=== PATIENT | female | born 1965 | race Caucasian/White ===

== ENCOUNTER → 2020-07-16 | Outpatient (CLI) | payer OTHER, SELFPAY | END | disposition home or self-care (01) | LOC: LABSPEC 16:17 | PROVIDERS: PCP Family Medicine; Referring Provider Family Medicine; Visit Provider Family Medicine | DX: M54.9 Dorsalgia, unspecified (principal) | CPT/HCPCS: 87086 ==

== ENCOUNTER → 2021-07-30 | Outpatient (CLI) | payer OTHER, SELFPAY | END | disposition home or self-care (01) | LOC: LABSPEC 09:44 | PROVIDERS: PCP Family Medicine; Referring Provider Physician Assistant; Visit Provider Physician Assistant | DX: Z11.52 Encounter for screening for COVID-19 (principal) | CPT/HCPCS: 87635; U0005; U0003 ==

== ENCOUNTER → 2023-01-11 | Outpatient (CLI) | payer OTHER, SELFPAY ==
--- NOTE | 2023-01-11 11:29 | RAD_ITS ---
STUDY: X-RAY - RIGHT SHOULDER REASON FOR EXAM: Female, 57 years old. PAIN TECHNIQUE: 4 view(s) of the shoulder. COMPARISON: None. FINDINGS: Normal glenohumeral articulation. Normal acromioclavicular joint. Normal acromion. Normal humeral head and visualized proximal humerus. The soft tissue structures are unremarkable. Normal visualized pulmonary apex. RAD/Shoulder min 2 Views IMPRESSION: Normal x-ray examination of the shoulder. Electronically Signed: Eric Mandel MD at 11:44 EDT ,
== END | disposition home or self-care (01) ==
PROVIDERS: PCP Family Medicine; Referring Provider Family Medicine; Visit Provider Family Medicine
DX: M25.511 Pain in right shoulder (principal)
CPT/HCPCS: 73030

== ENCOUNTER 2023-03-11 13:00 | Outpatient (RCR) | payer OTHER, SELFPAY ==
--- NOTE | 2023-01-14 14:14 | HP.PTEVAL ---
Patient's Visit Information KRISHNA TUCKER is a 57 year old F referred to Physical Therapy by Dr. Carmelita Pino MD with a diagnosis of Right Shoulder Pain. Date of Evaluation: 01/14/23 Physical Therapist: Audrey Orozco DPT - Visit Plan Frequency: 2x /Week Duration: 6 Weeks Plan: ROM of the right UE- PROM, AAROM, AROM then progress to scapular strength/stabilization. HEP Given IE: Supine Cane Flexion, Standing Cane Abd, Standing Cane Extn, Standing Flexion Walk Away, Wall Walks Flexion - Subjective Patient reports that she has decreased right shoulder ROM since October- last year she yanked on the mower and it didn't give but nothing happened. She woke up in October and felt inflamed. She struggles the most with being the back and up over head. She has had an x-rays but no MRI. She is careful and doesn't do things that she thinks will bother int. Pain is located in the deltoid and radiates to the elbow. No pain on the inside of the joint. No issue with finger dexterity or deputy assessor strength- no THOMAS, blurred vision or dizziness. Eases: Ibuprofen and not using it in ranges. Best: 0/10 Worst: feels like it wants to snap. Describes the pain as dull and achy like its going to pop. Early on she reached inside the washer and she heard a pop. She is not diabetic but her father is- no history of frozen shoulder in her family. Went to the MD and she said go to PT- she did not give her any medication. Sleep: not disturbed- on her left side only. 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 Left hand dominate- but she also uses her left hand a lot. PMHx: none Meds: topical ointment for rosacia - Objective Posture: guarding of the right UE. Gait: decreased arm swing of the right UE. Palpation: not tender to touch throughout the shoulder. ROM: AROM: Cervical: WNL Elbow/Wrist/Hand: WNL Shoulder: Flexion: 110 degrees: Abd: 70 degrees. ER: 30 degrees. IR: to belt line. PROM: Shoulder: Flexion: 150 degrees, Abd: 100 degrees, IR: to belly, ER: 50 degrees. Strength: Scap: fair minus. Shoulder: 4/5 isometric at neutral. Elbow: 4+/5 Decontaminator: good - Balance/Special Test Scores Quick DASH Score: 80.0000 - Goals Goal 1:: Patient will be I with HEP and progression Goal Time Frame: 4-6 Weeks Goal 2:: Patient will demo full AROM of the right shoulder without pain Goal Time Frame: 4-6 Weeks Goal 3:: Patient will place her hand behind her head without pain Goal Time Frame: 4-6 Weeks Goal 4:: Patient will hook her bra behind her back without pain Goal Time Frame: 4-6 Weeks Goal 5:: Patient will maintain proper posture to demo increased scap s/s Goal Time Frame: 4-6 Weeks Goal 6:: Patient will report 80% improvement Goal Time Frame: 4-6 Weeks - Rehabilitation Potential Physical Therapy Diagnosis: Patient presents with hypomobility- she has decreased right shoulder ROM, scapular strength/stabilization, flex and muscular endurance leading to increased pain with ADL's. Rehabilitation Potential: Good - Anticipated Interventions Patient/Client Instruction: Educate patient on: Benefits of Fitness Program Therapeutic Exercise to Include: Strength training, Endurance training, Coordination, Agility training, Body mechanics, Postural training, Flexibilty training, Neuromotor development, Passive ROM, Active ROM, Dynamic Lumbar Stabilization, Scapular Strength/Stabilization Manual Therapy Techniques to Include: Mobilization, Passive ROM, Soft tissue mobilization TENS: Yes Cryotherapy (ice pack, ice massage): Yes Thermo therapy (hot pack): Yes Thank you for the opportunity to evaluate your patient. For Medicare and Medicare HMO plans, please review the plan of care and approve it. It will need to be FAXED BACK to us at [phone] for Medicare purposes. For Medicare only, by signing this I certify the plan of care. Please let me know if there are questions or concerns regarding this plan of care. Physician Signature: Date:
--- NOTE | 2023-02-25 13:58 | HP.PTREVAL_ITS ---
Dr. Carmelita Pino MD, It has been my pleasure to treat KRISHNA TUCKER over the last 13 visits for Right Shoulder Pain. Please see the progress note below for an update on the physical therapy plan of care! Subjective: Getting better. I can reach alot more than at first. Pain not an issue unless stretching. Overall motion is 75%. Behind back is still biggest problem with ADLs to fasten bra and tuck in shirt. Objective/Function: 145 abd and 133 flexion. 35 er, L5 IR pain. All improved to close to functional but not full. Pin is not an issue. needing cues to get to end range stretches today. Goals still appropriate for next 2 weeks with fair prognosis for continued improvement. Plan Plan: f/u 2-3 weeks to ensure ROm improving and d/c if doing well or reup POC if not improving. Balance/Gait/Functional tests - Balance/Special Test Scores Quick DASH Score: 18.1800 Goals Goal 1:: Patient will be I with HEP and progression Goal Time Frame: 4-6 Weeks Goal Progress: Goal Met Goal 2:: Patient will demo full AROM of the right shoulder without pain Goal Time Frame: 4-6 Weeks Goal Progress: Progressing Goal 3:: Patient will place her hand behind her head without pain Goal Time Frame: 4-6 Weeks Goal Progress: Progressing Goal 4:: Patient will hook her bra behind her back without pain Goal Time Frame: 4-6 Weeks Goal Progress: Not Progressing Goal 5:: Patient will maintain proper posture to demo increased scap s/s Goal Time Frame: 4-6 Weeks Goal Progress: Goal Met Goal 6:: Patient will report 80% improvement Goal Time Frame: 4-6 Weeks Goal Progress: 75% Anticipated Interventions Patient/Client Instruction: Educate patient on: Benefits of Fitness Program Therapeutic Exercise to Include: Strength training, Endurance training, Coordination, Agility training, Body mechanics, Postural training, Flexibilty training, Neuromotor development, Passive ROM, Active ROM, Dynamic Lumbar Stabilization, Scapular Strength/Stabilization Manual Therapy Techniques to Include: Mobilization, Passive ROM, Soft tissue mobilization TENS: Yes Cryotherapy (ice pack, ice massage): Yes Thermo therapy (hot pack): Yes Please do not hesitate to contact me at [phone] by phone or Fax: if you have questions or concerns regarding this new plan of care! Sincerely, Joce Childs, DPT, OCS, CSCS
--- NOTE | 2023-03-11 13:13 | HP.PTDCSUM ---
It has been my pleasure to treat KRISHNA TUCKER referred by Dr. Carmelita Pino MD, with the diagnosis of Right Shoulder Pain for a total of 14 visit(s). Discharge Date: 03/11/23 Please see the following information for a summary of their discharge status. Subjective: No problems, activity is close to normal. Only pain with stretches. Can fasten bra with stretching it. % Improvement: 80 Objective/Function: 150 flexion and abduction. 45 er. IR. Much better ROM and funcitonally doing what whe needs without pain. strength is improving at 4/5 flexion, abd, er, ir without pain. Goal 1:: Patient will be I with HEP and progression Goal Progress: Goal Met Goal 2:: Patient will demo full AROM of the right shoulder without pain Goal Progress: Progressing Goal 3:: Patient will place her hand behind her head without pain Goal Progress: Goal Met Goal 4:: Patient will hook her bra behind her back without pain Goal Progress: Goal Met Goal 5:: Patient will maintain proper posture to demo increased scap s/s Goal Progress: Goal Met Goal 6:: Patient will report 80% improvement Goal Progress: 80 Plan: d/c to HEP If there are questions or concerns regarding this patient's physical therapy, please feel free to call me at [phone]. Thank you for the referral of this patient. Sincerely, Joce Childs, DPT, OCS, CSCS Balance/Gait/Functional tests - Balance/Special Test Scores Quick DASH Score: 2.2725
== END 2023-03-11 14:14 | disposition home or self-care (01) ==
LOC: PT 13:00
PROVIDERS: PCP Family Medicine; Referring Provider Family Medicine; Visit Provider Family Medicine
DX: S46.911D Strain of unspecified muscle, fascia and tendon at shoulder and upper arm level, right arm, subsequent encounter (principal)
CPT/HCPCS: 97110; 97140; 97162; 97164; 97530

== ENCOUNTER 2024-10-06 08:57 | Emergency (ER) | payer OTHER, SELFPAY ==
[2024-10-06] VITALS (7 sets, daily range): BP systolic 120–195; BP diastolic 61–164; PULSE 69–99; RESP 8–20; TEMP 36.6; O2SAT 92–99
--- NOTE | 2024-10-06 09:29 | EDS_ITS ---
HPI History of Present Illness Chief Complaint: Upper Extremity Injury Informant: patient Narrative Narrative: Healthy 59-year-old female was walking on snowy sidewalk and hit her back device, slipped and broke her fall with her right outstretched hand, injuring a nd suspecting she broke her wrist. She denies any other pain or injury. 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 No numbness or tingling. PFSH PFSH Medical History no medical history no medical history Home Medications ?Medication ?Instructions ?Recorded ?Last Taken ?Type hydrocodone-acetaminophen 5-325mg 1 tab PO Q6H PRN PRN Pain 3 days 10/06/24 Unknown Rx 5mg-325mg #10 TABLETS Allergy/AdvReac Type Severity Reaction Status Date / Time No Known Allergies Allergy Verified 10/06/24 09:01 Family History no significant family his Surgical History no surgical history Social History Smoking Status: Never smoker ROS ROS ED Constitutional Constitutional ED: Denies chills or fever(s) Musculoskeletal Musculoskeletal: Reports extremity pain; Denies neck pain Integumentary Denies Abrasions, rash or wounds Neurologic Neurologic: Denies paresthesias or weakness EXAM Physical Exam Const Vital Signs: 10/06/24 08:58 Temperature 97.8 F Temperature Source Oral Pulse Rate 69 Respiratory Rate 20 H Blood Pressure 195/164 H Blood Pressure Mean 174 Pulse Ox 99 Oxygen Delivery Method Room Air Positive well nourished and well developed General Appearance ED: well developed and NAD HEENT normocephalic and atraumatic Eyes PERRL and EOMs intact bilaterally Neck full ROM and supple Resp normal respiratory effort Back/Spine normal ROM and normal to inspection Extremity Extremity Narrative: Deformity of the right wrist with swelling and tenderness. Able to wiggle fingers, no hand or finger tenderness. Nontender at the elbow bony prominences, limited range of motion due to pain at the wrist. All other extremities move fully without any apparent injury or limitation. Neuro oriented x3, no focal motor deficits and no sensory deficits noted Sensorium / Orientation: alert Psych mental status grossly normal and thought process normal Skin no wounds Rashes: no rashes MDM MDM MDM Narrative Medical decision making narrative: Three-view x-ray right wrist on my interpretation consistent with a Colles' fracture with displacement. Discussed management with the patient, she needs close reduction here, splinting, probably outpatient surgery. She ate a little something on the way here and took some ibuprofen, so moderate sedation is contraindicated but I think reasonable to give her anxiolysis with midazolam, as she is thinking that she wants some sedation for hematoma block and closed reduction which I think is reasonable. See procedure note. Patient will be referred to upper extremity as an outpatient. Will be offered analgesic prescription. Procedures Upper Extremity Splints Upper Extremity Splint: Orthoglass (Wrist AP forearm short arm splint, neurovascularly intact distally after placement) Splint Fabrication: Fabricated Location: Right Procedural Sedation 1 (Initial Baseline): Consent Signed: Yes Sedation medication: Versed Dose: 2 Route: IV Maliampati Score: Class II ASA Classification: I Comment:: On monitor with prophylactic nasal cannula oxygenation and IV fluids, end-tidal CO2 monitoring, airway equipment at the bedside. Tolerated well with no complications. Other Procedures Procedure(s): Hematoma block: After informed consent, hematoma block performed to the right wrist with dorsal approach, isopropanol prep, 21-gauge needle, fracture site found to aspirated small amount of blood, injected 8 cc of plain 1% lidocaine, tolerated well no complications, partial anesthesia obtained. Closed reduction right displaced distal radius fracture: After light sedation and hematoma block, performed closed reduction with a palpable clunk, and improvement of the deformity. Patient splinted. Postreduction x-rays show near-anatomic position on my interpretation 2 views. Discharge Plan Triage Chief Complaint: Upper Extremity Injury ED Provider: Ancelmo Lewis Dx/Rx/DC Orders Clinical Impression: Traumatic closed displaced Colles' fracture of right radius, Fall from slipping on ice Instructions: Splint Care, ED Colles Fracture, Reduction Required Prescriptions: New hydrocodone-acetaminophen 5-325 mg tablet 1 tab PO Q6H PRN PRN (Reason: Pain) 3 Days Qty: 10 0RF Primary Care Provider: Carmelita Pino Referrals: Alejandro Augustine DO [Med Staff - Active Staff] - As soon as possible Girma Mccarty MD [Med Staff - Active Staff] - As soon as possible Activity Restrictions/Additional Instructions: Both above physicians are upper extremity orthopedic specialists, 2 different practices. Print Language: Mozambican Disposition Disposition: Home, Self Care
--- NOTE | 2024-10-06 09:29 | RAD_ITS ---
STUDY: X-RAY - RIGHT WRIST REASON FOR EXAM: Female, 59 years old. Injury. TECHNIQUE: 3 views of the right wrist were obtained. COMPARISON: None. FINDINGS: There is a comminuted fracture of the distal radial metaphysis, with posterior angulation and at least 7 mm posterior displacement. Normal visualized distal ulna. Normal carpal bones. Normal carpal articulations. Normal carpometacarpal articulation of the thumb. Normal second through fifth carpometacarpal articulations. Normal visualized metacarpal bones. There is soft tissue swelling around the wrist. RAD/Wrist min 3 Views IMPRESSION: Comminuted fracture of the distal radial metaphysis, with posterior angulation and at least 7 mm posterior displacement. Soft tissue swelling around the wrist. Electronically Signed: Harpreet Thakur MD at 10:16 EST ,
[2024-10-06] MEDS: Ondansetron 4 MG/2 ML Vial IV (09:49)
[2024-10-06] MEDS: Morphine 4 MG/ML Syringe IV (09:50)
[2024-10-06] MEDS: Lidocaine 1% (20 ml mdv) 20 ML Vial 10 ML INFILT (11:37)
[2024-10-06] MEDS: Midazolam 2 MG/2 ML Syringe IV (11:37)
[2024-10-06] MEDS: fentaNYL 100 MCG/2 ML Ampul 25 MCG IV (11:52)
--- NOTE | 2024-10-06 12:05 | RAD_ITS ---
STUDY: X-RAY - RIGHT WRIST, 10/06/2024, 12:06 PM REASON FOR EXAM: Female, 59 years old. Post reduction -- port TECHNIQUE: 2 views of the right wrist were obtained. COMPARISON: Right wrist radiographs dated 10/06/2024, 9:43 AM. FINDINGS: There is a new fiberglass cast surrounding the right wrist. There is improved alignment of the previously seen comminuted fracture of the distal radial metaphysis. Normal visualized distal ulna. Normal carpal bones. Normal carpal articulations. Normal carpometacarpal articulation of the thumb. Normal second through fifth carpometacarpal articulations. Normal visualized metacarpal bones. RAD/Wrist 2 Views IMPRESSION: New fiberglass cast surrounding the right wrist. Improved alignment of the previously seen comminuted fracture of the distal radial metaphysis. Electronically Signed: Harpreet Thakur MD at 12:39 EST ,
== END 2024-10-06 12:39 | disposition home or self-care (01) ==
PROVIDERS: Emergency Provider Emergency Medicine; PCP Family Medicine; Visit Provider Emergency Medicine
DX: S52.531A Colles' fracture of right radius, initial encounter for closed fracture (principal); W00.0XXA Fall on same level due to ice and snow, initial encounter
CPT/HCPCS: 25605; 73100; 73110; 96374; 96375; 99152; 99284; A4216; J2405

== ENCOUNTER 2024-10-10 12:51 | Day surgery (SDC) | payer OTHER, SELFPAY ==
[2024-10-10] VITALS (8 sets, daily range): BP systolic 144–162; BP diastolic 81–88; PULSE 78–88; RESP 16–19; TEMP 36.4–36.7; O2SAT 94–99; BMI 24.7
[2024-10-10] MEDS: 0.9% Normal Saline (1000mL) 1,000 ML 15 ML IV (13:20)
--- NOTE | 2024-10-10 13:28 | EKG12_ITS ---
Test Reason : preop Blood Pressure : */* mmHG Vent. Rate : 82 BPM Atrial Rate : 82 BPM P-R Int : 146 ms QRS Dur : 86 ms QT Int : 356 ms P-R-T Axes : 39 27 37 degrees QTcB Int : 415 ms Normal sinus rhythm Normal ECG No previous ECGs available Confirmed by Bay Peoples ([id number]), film and video editor TEA CHU ([id number]) on 10/11/2024 9:34:15 AM Referred By: Girma Mccarty Confirmed By: Bay Peoples
--- NOTE | 2024-10-10 13:45 | PRE.ANES_ITS ---
ASA Classification* ASA Classification ASA Classification: 2 Assessment & Plan Anesthesia* Anesthesia Assessment Anesthesia Assessment: Discussed sedation and/or anesthesia options, risks, benefits, and alternatives with patient/parents/legal guardian/POA. Questions invited. The patient/parents/legal guardian/POA seems to understand and agrees to proceed with anesthesia plan. Reviewed the physical assessment, medical history, allergy history and patient home medications list prior to surgery/procedure/anesthetic and documented any changes. Performed airway and anesthesia risk assessments. Anesthesia Type Anesthesia Type: General History Source History Obtained from:: Patient and Chart Anesthesia Focused Assessment* Temperature: 97.5 F Pulse Rate: 85 Blood Pressure: 162/87 Respiratory Rate: 16 Pulse Ox: 99 Oxygen Delivery Method: Room Air Airway Assessment Mouth opens: >3 cm Mallampati Score: I Teeth Condition: Missing (Patient has a couple molars out. 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 When Was Last Pacemaker Check QUESTION #4 FULL TEXT: You/Your Family Experience fever (hyperthermia) with Anesthesia Last Oral Intake Last Oral intake: Last Oral Intake NPO since 12:25 10/10/24 13:11 Meds taken in AM with sips of water? Meds patient instructed to take am of surgery Any additional information?: Yes NPO since: 12:25 (Patient had apple juice at 12:25 PM) Meds taken in AM with sips of water?: Yes Meds patient instructed to take am of surgery: Tylenol at 12:15 PM PONV PONV - service crew leader: PONV - service crew leader Female Yes 10/09/24 11:46 HX of Motion Sickness Yes 10/09/24 11:46 HX of N/V After Surgery No 10/09/24 11:46 Non-Smoker Yes 10/09/24 11:46 Duration of Surgery greater Yes 10/09/24 11:46 than 60 minutes Number of Risk Factors 4 10/09/24 11:46 PONV Score Severe Risk 10/09/24 11:46 Height & Weight Height & Weight: Anesthesia: Height & Weight Height 5 ft 1 in 10/10/24 13:11 Weight: 59.421 kg 10/10/24 13:11 Body Mass Index (BMI) 24.7 10/10/24 13:11 Respiratory Assessment Respiratory Assessment - service crew leader: Respiratory Tract Infection Hx - service crew leader Hx Respiratory Tract Infection No 10/09/24 11:46 STOP Sleep Apnea STOP Sleep Apnea - service crew leader: STOP Sleep Apnea - service crew leader Hx Hypertension No 10/09/24 11:46 Hx Sleep Apnea No 10/09/24 11:46 CPAP BIPAP Do you snore loudly (louder No 10/09/24 11:46 than talking or can be heard Do you often feel tired/ No 10/09/24 11:46 fatigued/ sleepy during daytime? Has anyone observed you stop No 10/09/24 11:46 breathing during sleep? STOP Results Negative 10/09/24 11:46 QUESTION #5 FULL TEXT : Do you snore loudly (louder than talking or can be heard through closed doors)? Tobacco Use History Tobacco Use History - service crew leader: Tobacco Use History - service crew leader Tobacco Use Smoking Status Never smoker 10/09/24 11:46 Hx Tobacco Use No 10/09/24 11:46 Years Smoking Packs Smoked per Day Smoking Cessation Date was within the last 15 years Hx Smoking Cessation Date Hx Smoking Cessation Counseling Hematologic Medial History Hematologic Hx - service crew leader: Hematologic Medical Hx - ortho tech Hx of Blood Transfusion No 10/09/24 11:46 Hx of Transfusion in last 3 No 10/09/24 11:46 Months Date of Last Transfusion (if within last 3 months) Ever experience any problems No 10/09/24 11:46 with transfusion(s)? Specify any problems Hx of Preganancy in last 3 No 10/09/24 11:46 Months Nurse Filling Out Transfusion DSCHRIBER 10/09/24 11:46 & Questions: Date: 10/09/24 10/09/24 11:46 Time: 11:47 10/09/24 11:46 Patient unable to answer at this time (ie. confused, unrespo /Reproduction History /Reproductive History - service crew leader: /Reproductive Hx- service crew leader Hx Now Gestational Age (in weeks): EDC: Hx Hx Para Hx Section SAB No 10/09/24 11:46 Active Medications Active Medications: Current Medications Generic Name Dose Route Start Last Admin Trade Name Freq PRN Reason Stop Dose Admin Sodium Chloride 1,000 mls @ 15 mls/hr 10/10/24 13:00 10/10/24 13:20 IV 10/16/24 02:19 15 mls/hr .Q48H ERIKA Administration Protocol [facility] Medical History Wears glasses Post-menopausal Alcohol use Anemia Heartburn Non-smoker History of edema Frozen shoulder Home Medications ?Medication ?Instructions ?Recorded ?Last Taken ?Type hydrocodone-acetaminophen 5-325mg 1 tab PO Q6H PRN PRN Pain 3 days 10/06/24 10/08/24 Rx 5mg-325mg #10 TABLETS acetaminophen 500 mg tablet 1,000 mg PO Q6H PRN pain 10/09/24 10/10/24 12:15 History (Acetaminophen Extra Strength) azelaic acid 15 % topical foam 1 applic topical DAILY 10/09/24 Unknown History (Finacea) ivermectin 1 % topical cream 1 applic topical DAILY 10/09/24 Unknown History (Soolantra) Allergy/AdvReac Type Severity Reaction Status Date / Time No Known Allergies Allergy Verified 10/10/24 13:10 Family History Other Cancer Heart disease Surgical History H/O tooth extraction Social History household members: spouse Smoking Status: Never smoker alcohol intake: current alcohol intake frequency: holidays/special occasions only Review of Systems (Anesthesia) ROS Narrative System reviewed and no additional complaints, except as documented.
--- NOTE | 2024-10-10 15:01 | HP.PCM_ITS ---
HPI - General HPI Narrative KRISHNA TUCKER, is a 59 F who presents for a right distal radius ORIF. no changes to h and p. ok to proceed. plan for a post op block. rab, narcotic counselling and post op instructions discussed. has FU on . right wrist marked. no further questions or concerns. MR#: [id number] Acct: [id number] Name: KRISHNA TUCKER Rep #: [id number] : 1965 Provider: Dr. Girma Mccarty MD Age/Sex: 59/F [place] [facility] [place] Status: Signed Intake Vital Signs 10/06/2507:58 10/06/2513:25 10/09/2508:47 Height 5 ft 1 in 5 ft 1 in 5 ft 1 in Weight: 132 lb 8 oz BMI 25.0 Intake Visit Reasons: RIGHT RADIUS Chief Complaint: ER Follow-Up Accompanied by: Is patient in pain?: Yes Pain scale (1-10): 1 Allergies No Known Allergies Allergy (Verified 10/09/24 09:48) Medications ?Medication ?Instructions ?Recorded ?Confirmed ?Type hydrocodone-acetaminophen 5-325mg 1 tab PO Q6H PRN PRN Pain 3 days 10/06/24 10/09/24 Rx 5mg-325mg #10 TABLETS acetaminophen 325 mg tablet 325 mg PO ONCE PRN 10/09/24 10/09/24 History (Tylenol) PFSH Medical History Frozen shoulder Surgical History H/O tooth extraction Family History (Updated 10/09/24 @ 09:50 by Taylor Blanc) Other Cancer Heart disease Social History (Updated 10/09/24 @ 09:50 by Taylor Blanc) household members: spouse Smoking Status: Never smoker alcohol intake: current alcohol intake frequency: holidays/special occasions only HPI RIGHT RADIUS Details: This documentation accurately reflects the service provided and the decisions made by me, Dr. Girma Mccarty MD 10/09/24 4517. Part of today?s visit was documented by [ ], acting as scribe. KRISHNA TUCKER is a 59 year old F here today for right distal radius fracture. FOOSH 3 days ago. LHD. 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 per the ED Healthy 59-year-old female was walking on snowy sidewalk and hit her back device, slipped and broke her fall with her right outstretched hand, injuring and suspecting she broke her wrist. She denies any other pain or injury. 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 No numbness or tingling. Ortho Exam General General: Yes no acute distress Neurologic: Yes alert and Yes oriented x3 Psychologic: Yes reasonable and appropriate Right Wrist/Hand Skin/Wound: Yes CDI, Yes Swelling, No Ecchymosis, Yes nail intact and Yes capillary refill normal Motor: EPL: 4, FDP-2: 4, 1st Dorsal Interosseous: 4 and APB: 4 Sensation: Radial: I, Ulnar: I and Median: I WRIST: in a splint. no elbow pain. forearm soft, fingers swollen Left Wrist/Hand Skin/Wound: Yes Swelling and No Ecchymosis Supplemental Info [facility] Imaging Services [address] [place] [id number] Wrist 2 Views MR#: [id number] Acct: [id number] Name: KRISHNA TUCKER Rep #: [id number] : 1965 F 59 From: Harpreet Thakur MD PCP: Dr. Carmelita Pino MD Status: [facility] ER Study: Wrist 2 Views Date of Exam: 10/06/24 Exam# [id number] Ordering Dr: Ancelmo Lewis MD STUDY: X-RAY - RIGHT WRIST, 10/06/2024, 12:06 PM REASON FOR EXAM: Female, 59 years old. Post reduction -- port TECHNIQUE: 2 views of the right wrist were obtained. COMPARISON: Right wrist radiographs dated 10/06/2024, 9:43 AM. FINDINGS: There is a new fiberglass cast surrounding the right wrist. There is improved alignment of the previously seen comminuted fracture of the distal radial metaphysis. Normal visualized distal ulna. Normal carpal bones. Normal carpal articulations. Normal carpometacarpal articulation of the thumb. Normal second through fifth carpometacarpal articulations. Normal visualized metacarpal bones. RAD/Wrist 2 Views IMPRESSION: New fiberglass cast surrounding the right wrist. Improved alignment of the previously seen comminuted fracture of the distal radial metaphysis. Electronically Signed: Harpreet Thakur MD at 12:39 EST Reading Location ID and State: [address] [place] [address] , Service support , [facility] Imaging Services [address] [place] [id number] Wrist min 3 Views MR#: [id number] Acct: [id number] Name: KRISHNA TUCKER Rep #: [id number] : 1965 F 59 From: Harpreet Thakur MD PCP: Dr. Carmelita Pino MD Status: REG ER Study: Wrist min 3 Views Date of Exam: 10/06/24 Exam# [id number] Ordering Dr: Ancelmo Lewis MD STUDY: X-RAY - RIGHT WRIST REASON FOR EXAM: Female, 59 years old. Injury. TECHNIQUE: 3 views of the right wrist were obtained. COMPARISON: None. FINDINGS: There is a comminuted fracture of the distal radial metaphysis, with posterior angulation and at least 7 mm posterior displacement. Normal visualized distal ulna. Normal carpal bones. Normal carpal articulations. Normal carpometacarpal articulation of the thumb. Normal second through fifth carpometacarpal articulations. Normal visualized metacarpal bones. There is soft tissue swelling around the wrist. RAD/Wrist min 3 Views IMPRESSION: Comminuted fracture of the distal radial metaphysis, with posterior angulation and at least 7 mm posterior displacement. Soft tissue swelling around the wrist. Electronically Signed: Harpreet Thakur MD at 10:16 EST , I independently reviewed the imaging. Concur with radiologist report. Coding Level of Care Code Off vis,new,level 3 Diagnoses Traumatic closed displaced Colles' fracture of right radius S52.531A Assessment and Plan Assessment and Plan (1) Traumatic closed displaced Colles' fracture of right radius: Status: Acute Plan: KRISHNA TUCKER is a 59 year old F here today for right distal radius fracture. I explained to the patient the diagnosis prognosis different treatment options including doing nothing casting as well as open reduction internal fixation with volar plating or other means. Given the patient's high functional demands as well as high degree of initial dorsal angulation and comminution as well as intra-articular nature of the fracture patient would likely do better with open reduction internal fixation although again we went over all the different options. Specific risks of surgery were discussed tendon irritation tendon rupture delayed or mall union VTE and other risks. The patient wished to go ahead we will keep them in the splint recommend rest ice elevation anti-inflammatories for now and signed the consent and book the patient for right distal radius open reduction internal fixation. Try to get this done within the next week.Patient understood no further questions or concerns. Pros and cons risks and benefits were discussed with the patient including but not limited to infection, pain, stiffness, bleeding, damage to surrounding structures, neurovascular injury, recurrence or retear, failure or wear of hardware or fixation, instability, fracture, deep vein thrombosis and pulmonary embolism, anesthetic risks, , patient dissatisfaction, need for further samaniego rgery and other risks. Patient understood and wished to proceed with surgery, and signed the informed consent documentation. [facility] Medical History Wears glasses Post-menopausal Alcohol use Anemia Heartburn Non-smoker History of edema Frozen shoulder Home Medications ?Medication ?Instructions ?Recorded ?Last Taken ?Type hydrocodone-acetaminophen 5-325mg 1 tab PO Q6H PRN PRN Pain 3 days 10/06/24 10/08/24 Rx 5mg-325mg #10 TABLETS acetaminophen 500 mg tablet 1,000 mg PO Q6H PRN pain 10/09/24 10/10/24 12:15 History (Acetaminophen Extra Strength) azelaic acid 15 % topical foam 1 applic topical DAILY 10/09/24 Unknown History (Finacea) ivermectin 1 % topical cream 1 applic topical DAILY 10/09/24 Unknown History (Soolantra) Allergy/AdvReac Type Severity Reaction Status Date / Time No Known Allergies Allergy Verified 10/10/24 13:10 Family History Other Cancer Heart disease Surgical History H/O tooth extraction Social History household members: spouse Smoking Status: Never smoker alcohol intake: current alcohol intake frequency: holidays/special occasions only Vital Signs Vital Signs Vital Signs: 10/10/24 13:11 10/10/24 13:56 Temperature 97.5 F L 97.5 F L Temperature Source Temporal Pulse Rate 85 85 Respiratory Rate 16 16 Blood Pressure 162/87 H 162/87 H Blood Pressure Mean 112 Blood Pressure Source Monitor Blood Pressure Position Semi-Fowlers Blood Pressure Location Left Arm Pulse Ox 99 99 Oxygen Delivery Method Room Air Room Air Weight Weight: 131 lb Body Mass Index (BMI) 24.7
[2024-10-10] MEDS: Cefazolin 2 GM in Syringe IV (15:21)
--- NOTE | 2024-10-10 15:30 | RAD_ITS ---
HISTORY: FX. TECHNIQUE: 4 spot images. COMPARISON: XR 10/06/2024. FINDINGS: OSSEOUS STRUCTURES: Cortical plate and screw fixation of distal radial fracture. FLUOROSCOPY TIME: 17.6 seconds. RADIATION DOSE: 0.46 mGy. RAD/Wrist 2 Views IMPRESSION: Image guidance for right wrist ORIF. Electronically Signed: Maribell Holliday MD at 9:21 EST ,
--- NOTE | 2024-10-10 16:37 | PCM.OPRPT ---
Problems Associated Problem List Diagnoses (1) Traumatic closed displaced Colles' fracture of right radius: Procedures Musculoskeletal 20xxx-29xxx: Other Procedure See Report Operative Report (Standard) Operative Information Date of Procedure: 10/10/24 Pre-Operative Diagnosis: Right distal radius fracture Post-Operative Diagnosis: Same Surgery/Procedure Performed: Right distal radius open reduction internal fixation tool and fixture repairer: No Type of Anesthesia: General RN Documented Start/Stop Times: Operation Date: 10/10/24 14:30 Case Time Into Pre-Op 10/10/24 12:56 Anesthesia Start 10/10/24 15:21 Into Room 10/10/24 15:21 Procedure Start 10/10/24 15:42 Procedure End 10/10/24 16:29 Anesthesia End 10/10/24 16:36 Out of Room 10/10/24 16:36 Procedure Start Time: 15:42 Procedure Stop Time: 16:29 Select all DRAINS/GRAFTS/IMPLANTS that apply: Implanted device Implanted device details: arthrex volar distal radius plate Estimated Blood Loss: 50 Specimen collected: No Description of surgery: Patient brought to the operating room theater. Placed supine on the table. General anesthesia induced. 2 g IV Ancef administered prior to the start of the case. Bed turned 90 degrees. Upper extremity prepped and draped in the usual sterile fashion with chlorhexidine-based prep solution allowing over 3 minutes drying time prior to draping. Tourniquet applied to the upper extremity 18 inch appropriately padded. Preoperative timeout performed to confirm the site patient and surgery. Began by exsanguinating the limb with a sterile Esmarch elevating the limb and inflated the tourniquet to 250 mmHg. Made a standard volar incision over the FCR tendon carried the dissection down through skin and subcutaneous tissue achieved meticulous hemostasis. FCR tendon sheath was incised as well as the subs sheath incised tendon retracted radially protected the radial artery and ligated any crossing vessels. Then developed the interval between FPL retracted this ulnarly. Made an L-shaped incision as well as using the zone of trauma through the pronator quadratus. Retracted this from radial to ulnar. Incised BR tendon. Identified the fracture site cleared away any interposed fracture hematoma and callus and periosteum. Achieved a preliminary reduction recreating the deformity and then achieving anatomic reduction at the fracture site. This was 3 fracture fragments with the sagittal split into the joint. I reduced all 3 fragments. I selected a Arthrex volar precontoured locking plate a narrow plate with 3 proximal holes. Placed the plate appropriately and then took intraoperative radiographs to ensure the plate was appropriately placed not too distal just proximal to the watershed line and appropriately in the middle of the bone. Secured the plate to the bone using 3.5 mm cortical screws 3 of them proximally these measured 14 mm in length. I then placed a number of 2.4 mm fully threaded cortical locking screws in the distal fragments to secure the articular block surface. Check AP lateral and true lateral 30 degree tilt view to ensure the screws were adequately placed in the articular surface, not into the joint, and the fracture appropriately reduced ensuring appropriate length alignment and rotation. Tourniquet let down meticulous hemostasis achieved final radiographs taken and saved onto the system. Wound thoroughly irrigated subcutaneous tissue closed with 2-0 Vicryl suture and skin with 3-0 Monocryl. Skin cleaned with wet dry dressing followed application of Steri-Strips Adaptic 4 x 4 gauze sterile cast padding and a volar fiberglass prefabricated splint with the hand and wrist in neutral overwrapped loosely with Elpidio wrap. This is allowed fully the right patient woken up from the general anesthetic transferred off the operating table and taken to postanesthetic care unit in stable condition. All sponge needle instrument counts were correct no complications plan for the patient discharged home according to day surgery criteria follow-up in the office on . CPT 75298 Surgical Findings: ORIF right distal radius for multi part intra articular fracture Complications Complications: No Admit VTE Documentation VTE Present on Admission: No VTE Mechan Device Prophylaxis: SCD's VTE Pharm Prophylaxis ordered?: No Reason prophylaxis not ordered: Treatment Not Indicated
--- NOTE | 2024-10-10 16:45 | DCINST_ITS ---
Discharge Instructions Diet Discharge Diet: No restrictions Activity Ice area for (Minutes): 10 Lifting Restrictions: no lifting over 1 pound Keep extremity elevated above heart level: Operative Extremity Dressing / Incision Call your doctor if your incision/area has: Continuous Slow Oozing, Sudden Increased Bleeding, Increased Pain/ Swelling, Increased Redness, Foul Smelling D ischarge and Swelling at the incision site Call your doctor if you observe: Fever of 101 or Higher, Coldness, Increased Pain and Numbness or Tingling Remove Dressing in: leave in place till F/U Cleanse incision/area with: Do not get Incision Wet Follow Up Care Please Follow Up With: Girma Mccarty MD When: (or early next week) Test Results: Test results from this visit will be discussed in further detail at your follow- up appointment, if applicable. Discharge Plan Admission Attending Provider: Girma Mccarty Primary Care Provider: Carmelita Pino Instructions Print Language: Bulgarian Discharge Orders/Prescriptions Prescriptions: New oxycodone-acetaminophen [Endocet] 5-325 mg tablet 1 tab PO Q4H MDD 6 PRN (Reason: pain) 5 Days Qty: 20 0RF No Action hydrocodone-acetaminophen 5-325 mg tablet 1 tab PO Q6H PRN PRN (Reason: Pain) 3 Days Qty: 10 0RF acetaminophen [Acetaminophen Extra Strength] 500 mg tablet 1,000 mg PO Q6H PRN (Reason: pain) Finacea 15 % foam 1 applic topical DAILY ivermectin [Soolantra] 1 % cream 1 applic topical DAILY Referrals / Follow Up: Carmelita Pino MD [Primary Care Provider] - Girma Mccarty MD [Med Staff - Active Staff] - Disposition Disposition (needs filled in before D/C Order can be placed): Home, Self Care
--- NOTE | 2024-10-10 16:51 | PCM.POST.ANE ---
Anesthesia: Postop Eval I Current Vital Signs Temperature: 98 F Pulse Rate: 84 Blood Pressure: 155/86 Respiratory Rate: 19 Pulse Ox: 97 Oxygen Delivery Method: Room Air Assessment Airway patent: Yes Spontaneous unlabored respirations: Yes Mental status: Awake and Calm nausea: No Vomiting: No Anesthesia Complication: No Fluid Hydration Crystalloid volume administer (ml): 1,000 Total IV fluid infused: 1,000 Progress Note Anesthesia document: Postop Eval 1 completed: Yes
--- NOTE | 2024-10-10 17:11 | PCM.POSTANE2 ---
Anesthesia Postop Eval I Sum Postop Eval Completion status Anesthesia document: Postop Eval 1 completed: Yes Anesthesia Postop Eval I Summary Anesthesia Postop Eval I Summary: Anesthesia Postop Eval I: Assessment Summary Airway patent Yes 10/10/24 16:52 Spontaneous unlabored Yes 10/10/24 16:52 respirations Mental status Awake,Calm 10/10/24 16:52 nausea No 10/10/24 16:52 Vomiting No 10/10/24 16:52 Anesthesia Postop Eval I: Fluid Summary Crystalloid volume administer 1,000 10/10/24 16:52 (ml) Colloids volume administered ( ml) Blood Product volume administered (ml) Total IV fluid infused 1,000 10/10/24 16:52 Anesthesia Postop Eval I: Summary Notes Anesthesia Complication No 10/10/24 16:52 Anesthesia Complication Comment: Post-operative progress note Anesthesia: Postop Eval II Evaluation Mental status: Awake and Calm Pain Level: 1 nausea: No Vomiting: No Progress Note Post-operative progress note: Patient had an axillary block done in PACU after surgery. Complications Anesthesia Complication: No
== END 2024-10-10 19:42 | disposition home or self-care (01) ==
LOC: SDC 12:52 → AC 12:53
PROVIDERS: PCP Family Medicine; Referring Provider Orthopaedic Surgery Sports Medicine; Visit Provider Orthopaedic Surgery Sports Medicine
PROC: (CPT 25609; principal; 2024-10-10 14:15)
DX: S52.531A Colles' fracture of right radius, initial encounter for closed fracture (principal); W00.0XXA Fall on same level due to ice and snow, initial encounter; Y93.01 Activity, walking, marching and hiking; Y92.480 Sidewalk as the place of occurrence of the external cause; Z79.891 Long term (current) use of opiate analgesic; Z79.899 Other long term (current) drug therapy
CPT/HCPCS: 25609; 01830; 64415; 73100; 76000; 93005; C1713; J2405

== ENCOUNTER 2025-02-12 10:30 | Outpatient (RCR) | payer OTHER, SELFPAY ==
--- NOTE | 2024-10-18 07:38 | HP.OTEVAL_ITS ---
Patient's Visit Information Visit Information Visit Information: KRISHNA TUCKER is a 59 year old F, referred to Occupational Therapy by Dr. Girma Mccarty MD, with a diagnosis of right distal radius fx. Date of Evaluation: 10/17/24 Occupational Therapist: BESSY Botello/Julian, CHT Subjective Subjective: This 59 year old female was seen for OT eval with dx right wrist fx. pt states DOI was on DOI 10/06/24. pt underwent ORIF on 10/10/24. 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 pt currently states min. pain as she put herself on strict time schedule with taking over the counter medications ie Tylenol/Advil pt states she has not taken her wrist brace off only to change dressing Pain right wrist: Current Pain Intensity: 0 Pain Intensity Range: 2 and 3 ROM Forearm: right NT left supination/pronation WNL Wrist: right 0/20 left 60/70 ROM Comments: left RD [address] 5 UD 10 pt guarded and reluctant to move fingers pt unable to position arm in N pt able to get forearm pronated on table top Strength Foot Worker: right NT left 45# Lateral Pinch: right NT left 12# Tripod Pinch: right NT left 18# Strength Comments: will test right leather parts matcher and pinch strength at later date Sensation Sensation Comments: denies Quick DASH-Disab of Arm,Shoulder& Hand Quick DASH Score: 80.0000 Goals Goal:Daily scar massage when approriate: Yes Goal:ROM equal to unaffected hand: Yes Goal:Foot Worker/Pinch strength at least 75% of unaffected hand: Yes Comment: will not initiate until s/p week 6 or unless otherwise specified Goal:No pain with affected hand use: Yes Comment: with ADLs and IADLs Goal:PIP Circumferences equal to unaffected hand: Yes Goal:Full use of affected hand in daily activities including work: Yes Rehabilitation General Assessment: pt arrives to session s/p 1 week following ORIF. Pt arrives with soft brace on however therapist noted pt had wrist positioned in slight flexion due to fit of brace. (therapist ed. pt on how to position wrist in brace to prevent stretch of carpal ligaments- extensor tension and to prevent scar contractures. pt demo need for skilled OT 1-2x week for 8 weeks to return pt back to a PLOF. Today therapist ed, pt on fx and healing process and how Dr. Mccarty placed plate to initiate light motion to prevent complications of scar adhesions and swelling. pt demo understanding- therapist ed, pt on initiation of finger ROM (tendon glides) and gentle soft wrist ROM-ed,.to perform shoulder ROM- elbow ROM to prevent shoulder issues and stimulate circulation- pt demo understanding- pt verbalized process to change dressing every two days. today therapist was able to get right forearm resting on table top with hand flat - pt able to initiate finger add and abduction as well as digit extension.- pt demo difficulty with tendon glide but therapist reassured pt she will make gains as long as she performs ex. pt demo understanding and agree POC. Rehabilitation Potential: Good Anticipated Interventions Anticipated Interventions: A/AAROM/PROM, Strengthening, Scar Care, Triggerpoint Release, Desensitization, Modalities, Orthoses, Joint Protection/Energy Conservation, Ergonomic Education, Fine Motor Coord/Cali, Education re assistive Equipment, Education re Diagnosis and Home Program Visit Plan Frequency: 1-2x /Week Duration: 2 Months General Plan: ed. pt on dx and healing and ORIF allowing for initiate of finger ROM -thumb ROM and light wrist motion- Will work on tendon glides to prevent scar adhesions- (about 1-2 weeks) light wrist ROM 1-2weeks and initiate forearm supination at week 2-4 TEXT: Thank you for the opportunity to evaluate your patient. For Medicare and Medicare HMO plans, please review the plan of care and approve it. It will need to be FAXED BACK to us at [phone] for Medicare purposes. Please let me know if there are questions or concerns regarding this plan of care. Physician Signature: Date:
--- NOTE | 2024-10-26 08:31 | HP.OTREVAL ---
Re-Evaluation Intro: Dr. Girma Mccarty MD, It has been my pleasure to treat KRISHNA TUCKER over the last 4 visits for right distal radius fx. Please see the progress note below for an update on the occupational therapy plan of care! Subjective Subjective: pt arrives doing well swelling to wrist and ulnar styloid red. pt sees this date after session. Objective Objective/Function: R wrist 20/30 compsoite fist MF 3 cm from palm opposition to all digits denies pain denies tingling wrist does drop forward increased difficulty keeping in neutral and bringing into extension R thumb MP 45 IP 25 degrees Plan Plan Frequency: 1-2x /Week Duration: 2 Months Plan: composite fist hook fist progress ROM as tolerated dart throwers short arch wrist ROM Goals Goals Patient Goals: Regain Mobility, Improve Fine Motor Skills, Use Hand/Wrist/Arm Normally Again, Be More Independent in ADLS and Resume Former Household Responsibilities (Cooking,Cleaning,Yard, etc.) Goal:Daily scar massage when approriate: Yes Goal:ROM equal to unaffected hand: Yes Goal:Seamstress Fitter/Pinch strength at least 75% of unaffected hand: Yes Goal:No pain with affected hand use: Yes Goal:PIP Circumferences equal to unaffected hand: Yes Goal:Full use of affected hand in daily activities including work: Yes Anticipated Interventions Anticipated Interventions Anticipated Interventions: A/AAROM/PROM, Strengthening, Scar Care, Triggerpoint Release, Desensitization, Modalities, Orthoses, Joint Protection/Energy Conservation, Ergonomic Education, Fine Motor Coord/Cali, Education re assistive Equipment, Education re Diagnosis and Home Program Re-Evaluation Ending Re-evaluation ending: Please do not hesitate to contact me at [phone] by phone or if you have questions or concerns regarding this new plan of care! Sincerely, Mae Hunt
--- NOTE | 2025-02-12 10:57 | HP.OTDCSUM ---
Discharge Summary D/C Summary: It has been my pleasure to treat KRISHNA TUCKER under orders from Dr. Girma Mccarty MD, for the diagnosis of right distal radius fx for a total of 20 visit(s). Please see the following information for a summary of their discharge status. Overall Improvement % Improvement: 75 Objective Objective/Function: supination 15 degrees wrist extension 30* wrist flexion 20* R insights manager strength 20# increase from 5# right lateral pinch 10# right tripod pinch 14# right RD 5* right UD 20* pt arrives for last approved OT session. pt states she has noticed gains with functional use of right hand- with using weed eater, mowing the grass, and do her yard work. pt is playing her piano and doing fine. pt states due to her limited gains in her ROM she has started to use her left hand for pouring coffee, opening jars etc. Not letting her ROM and weakness stop her from functional daily tasks. Goals Patient Goals: Regain Mobility, Improve Fine Motor Skills, Use Hand/Wrist/Arm Normally Again, Be More Independent in ADLS and Resume Former Household Responsibilities (Cooking,Cleaning,Yard, etc.) Goal:Daily scar massage when approriate: Yes Goal Progress: Goal Met Goal:ROM equal to unaffected hand: Yes Goal Progress: Progressing Goal:Program Director Group Work/Pinch strength at least 75% of unaffected hand: Yes Goal Progress: Progressing Goal:No pain with affected hand use: Yes Goal Progress: Progressing Goal:PIP Circumferences equal to unaffected hand: Yes Goal Progress: Progressing Goal:Full use of affected hand in daily activities including work: Yes Goal Progress: Progressing Plan Plan: D/C D/C Information Discharge Comments: Pt was seen 20 therapy sessions and has made gains towards functional use of right UE with ADLs. pt will cont. with her HEP as end range stretch to her tolerance, strengthening and daily occupational fredy. pt agrees with D/C. d/c sentence: If there are questions or concerns regarding this patient's occupational therapy, please fell free to call me at [phone]. Thank you for the referral of this patient. Sincerely, Lori Hogan, OTR/L, CHT
== END 2025-02-12 19:00 | disposition home or self-care (01) ==
LOC: OT 10:30
PROVIDERS: PCP Family Medicine; Visit Provider Orthopaedic Surgery Sports Medicine
DX: S52.531D Colles' fracture of right radius, subsequent encounter for closed fracture with routine healing (principal)
CPT/HCPCS: 97110; 97140; 97166; 97530; 97760